=== PATIENT | female | born 1940 | race Caucasian/White ===

== ENCOUNTER 2021-08-11 09:03 | Outpatient (CLI) | payer MEDICARE, SELFPAY ==
[2021-08-11 10:02] VITALS: BMI 33.3
--- NOTE | 2021-08-11 10:05 | NMCV_ITS ---
NM tang perf SPECT r/s* [id number] Erica Khan Age: 81 Gender: F : 1940 Exam Date: 08/11/2021 10:56 Ordering Phys: Guera Dodge Technologist: FABRICE Monreal Exam Location: [facility] Indications: PAROXYSMAL A FIB STRESS TEST Please see separate stress test report in [facility] for full findings IMAGE PROTOCOL Rest/Stress 1 Lexiscan Day Radiopharmaceutical Dose (mCi) Administration Site Administered by Rest: Tc-99m 10.5 IV FABRICE Monreal Sestamibi Stress:Tc-99m 32.7 IV FABRICE Salter Sestamibi Rest: 11-Aug-2021 60 Discovery 630 Stress: 11-Aug-2021 30 Discovery 630 0.4mg Lexiscan. Images obtained in supine and prone position. SPECT RESULTS Technical Quality: Excellent Raw Data Analysis: Normal Image Corrections: No attenuation or motion correction applied Summed Stress Score: 1 Summed Rest Score: 0 Summed Difference Score: 1 PERFUSION FINDINGS There is homogenous radiotracer uptake throughout the myocardium. No evidence of ischemia seen. FUNCTIONAL RESULTS (calculated via Gated SPECT) Stress Image LV EF (%): 66 Stress EDV (mL):64 TID: 1.13 Stress ESV (mL):22 FUNCTIONAL FINDINGS: There is normal left ventricular systolic function. IMPRESSIONS 1. Normal myocardial perfusion imaging with no evidence of ischemia. 2. Normal LV systolic function normal Cruz Whyte MD (Electronically Signed) Final Date: 13 August 2021 23:41 S
--- NOTE | 2021-08-11 10:05 | ECG_ITS ---
[facility] Test Date: 2021-08-11 Pat Name: Erica Khan Department: Room: Gender: Female Manager Integration: Corinne Davis : 1940 Requested By: Guera Dodge Order Number: [id number] Harrison MD: Cruz Whyte M.D. Interpretive Statements NAME OF STUDY: LEXISCAN SESTAMIBI STRESS TEST INDICATION: [afib] Procedure: At the baseline, the blood pressure was 136/95 mmHg with a heart rate of 77 bpm. The electrocardiogram showed atrial fibrillation, normal axis with normal ST and T's. The Lexiscan was infused over a period of 20 seconds. A total of 0.4 mg of Lexiscan was infused. The stress phase was continued for a total of 5 minutes. Heart rate was at the end of stress phase was 93 bpm and a blood pressure of 128/82 mmHg. The EKG at the peak infusion revealed atrial fibrillation with no significant ST-T wave changes. Sestamibi was injected 20 seconds after the Lexiscan infusion. Blood pressure at the end of recovery phase was 145/91 mmHg with a heart rate of 99 bpm. Conclusion: 1. Normal EKG response to Lexiscan infusion 2. No Lexiscan induced chest pain or cardiac arrhythmia. 3. Normal blood pressure and heart rate response. 4. Sestamibi/sestamibi perfusion scan pending; see separate report. Electronically Signed On 09-18-2021 11:44:20 CDT by Cruz Whyte M.D. [email or web address]
[2021-08-11] MEDS: regadenoson 0.4 Mg/5 ml Syringe IVP (11:35)
[2021-08-11 11:40] VITALS: BP 145/91; PULSE 91
== END 2021-08-11 09:04 | disposition home or self-care (01) ==
PROVIDERS: PCP Family Medicine; Visit Provider Nurse Practitioner Family
DX: I48.0 Paroxysmal atrial fibrillation (principal)
CPT/HCPCS: 78452; 93017; A9500; J2785

== ENCOUNTER → 2021-10-08 11:05 | Outpatient (BNVA) | payer MEDICARE, SELFPAY | PROVIDERS: PCP Family Medicine; Visit Provider Nurse Practitioner Family | DX: Z20.822 Contact with and (suspected) exposure to COVID-19 (principal); U07.1 COVID-19 | CPT/HCPCS: 87426 ==

== ENCOUNTER → 2023-08-10 08:11 | Outpatient (BNVA) | payer MEDICARE, SELFPAY | PROVIDERS: PCP Family Medicine; Visit Provider Nurse Practitioner Family | DX: I10 Essential (primary) hypertension (principal); I48.91 Unspecified atrial fibrillation; Z79.899 Other long term (current) drug therapy | CPT/HCPCS: 80053; 84443; 85025 ==

== ENCOUNTER → 2024-12-26 15:03 | Outpatient (BNVA) | payer MEDICARE, SELFPAY | PROVIDERS: PCP Family Medicine; Visit Provider Nurse Practitioner Family | DX: I10 Essential (primary) hypertension (principal); I48.91 Unspecified atrial fibrillation | CPT/HCPCS: 80053; 85025 ==